=== PATIENT | male | born 1970 | race Caucasian/White ===

== ENCOUNTER 2025-03-23 17:52 | Inpatient (IN) | payer SELFPAY ==
[~2025-03-23] VITALS: Ht 162.6 cm; Wt 110.3 kg
[2025-03-23] MEDS: SODIUM CHLORIDE 0.9% 1,000 ML IV ONE (18:20)
[2025-03-23 20:27] LABS: BASOPHILS % 0.4 % (0.0-2.0); EOSINOPHILS % 0.3 % (0.0-5.0); HEMATOCRIT. 44.7 % (42.0-52.0); HEMOGLOBIN. 14.7 g/dL (14.0-18.0); LYMPHOCYTES % 35.6 % (20.0-50.0); MEAN PLATELET VOLUME 8.2 fl (7.4-10.4); MONOCYTES % 7.4 % (2.0-8.0); NEUTROPHILS % 56.3 % (40.0-76.0); PLATELET 239 x1000/uL (130-400); RED BLOOD CELL COUNT 5.04 mill/uL (4.7-6.1); RED CELL DISTRIBUTION WIDTH 12.4 % (11.6-14.6)
[2025-03-23 20:39] LABS: CREATININE 0.9 mg/dL (0.6-1.3); TROPONIN I HIGH SENSITIVITY < 4 ng/L (3.0-53)
[2025-03-23 20:40] LABS: UREA NITROGEN BLOOD 8 mg/dL (9-23)
[2025-03-23 20:41] LABS: ASPARTATE AMINOTRANSFERASE 30 IU/L (<34)
[2025-03-23 20:42] LABS: BILIRUBIN DIRECT < 0.1 mg/dL (<=3.0); BILIRUBIN TOTAL 0.2 mg/dL (0.1-1.0); PROTEIN TOTAL 6.5 g/dL (6.0-8.3)
[2025-03-23 21:00] VITALS: O2SAT 97
[2025-03-23] MEDS: MIDAZOLAM HCL 2 MG/2 ML VIAL IV ONE (21:00)
[2025-03-23] MEDS: FOLIC ACID 1 MG, THIAMINE HCL 100 MG, MVI, ADULT NO.1 10 ML in DEXTROSE 5% WATER 1,000 ML IV ONE (22:05)
[2025-03-23] MEDS ORDERED: LORAZEPAM 2MG/ML UD SYRINGE IV PRN (23:00)
[2025-03-23] MEDS ORDERED: CHLORDIAZEPOXIDE 25MG CAPSULE PO PRN (23:00)
[2025-03-23] MEDS ORDERED: PHENOBARBITAL 60MG TABLET PO PRN (23:00)
[2025-03-23] MEDS ORDERED: DEXTROSE 50% WATER 50ML SYRINGE IV PRN (23:00)
[2025-03-23] MEDS: DEXT 5%/0.9% NACL 1,000 ML IV SCH (23:00)
[2025-03-23] MEDS ORDERED: ONDANSETRON HCL 4MG/2ML INJ IV PRN (23:00)
[2025-03-24 00:02] VITALS: BP 143/78; PULSE 88; RESP 20; TEMP 36.7; O2SAT 99
[2025-03-24] MEDS: MULTIVITAMINS,THER W-MINERALS TABLET PO SCH (00:09)
[2025-03-24] MEDS: FOLIC ACID 1MG TABLET PO SCH (00:09)
[2025-03-24] MEDS: PANTOPRAZOLE SODIUM 40 MG/VIAL IV SCH (00:15)
[2025-03-24] MEDS: THIAMINE HCL 100 MG/1 ML 2ML VIAL IM SCH (00:27)
[2025-03-24 00:45] VITALS: BP 138/86; PULSE 93; RESP 18; TEMP 36.5848
[2025-03-24 01:16] LABS: BG BASE EXCESS -2.5 mmol/L (-2.0-3.0); BG CARBOXYHEMOGLOBIN 1.2 % (0.5-1.5); BG DEOXYHEMOGLOBIN 4.2 % (0.0-5.0); BG FRACTION INSPIRED OXYGEN 21; BG HCO3 ACT 21.0 mmol/L (21.0-28.0); BG METHEMOGLOBIN 0.2 % (0.5-1.5); BG OXYGEN SATURATION 95.7 % (94.0-98.0); BG OXYHEMOGLOBIN 94.4 % (94.0-98.0); BG PCO2 33.0 mmHg (35.0-48.0); BG PH 7.421 (7.350-7.450); BG PO2 79.5 mmHg (83.0-108.0); BG SAMPLE SITE RIGHT BRACHIAL; BG TOTAL HEMOGLOBIN 15.4 g/dL (13.5-17.5); BG VENT MODE ROOM AIR
[2025-03-24] MEDS ORDERED: BLOOD SUGAR DIAGNOSTIC STRIP TEST SCH (07:40)
[2025-03-24] MEDS ORDERED: INSULIN LISPRO 100 UNITS/ML SUBCUT SCH (08:10)
[2025-03-24] MEDS ORDERED: ENOXAPARIN 40MG/0.4ML SYR SUBCUT SCH (09:00)
[2025-03-26] MEDS ORDERED: THIAMINE HCL 100MG TABLET PO SCH (09:00)
== END 2025-03-24 01:55 | disposition left against medical advice (07) | DRG 770 ==
LOC: ER 17:52 → EDBEDREQ 20:54 → EDBEDREQTM 20:54 → ENRESERV 21:21 → EDBD 22:20 → 7WST 22:20
PROVIDERS: ADMIT Hospitalist; ATTEND Hospitalist
DX: F10.229 Alcohol dependence with intoxication, unspecified (principal); G93.40 Encephalopathy, unspecified; E87.0 Hyperosmolality and hypernatremia; E87.20 Acidosis, unspecified; E11.9 Type 2 diabetes mellitus without complications; Y90.8 Blood alcohol level of 240 mg/100 ml or more; I10 Essential (primary) hypertension; Z53.29 Procedure and treatment not carried out because of patient's decision for other reasons
CPT/HCPCS: 36415; 36600; 71045; 80048; 80076; 80307; 80320; 80329; 82010; 82375; 82805; 83605; 83735; 83880; 84484; 85025; 93005; 99285; J2250; J3411; J3490; J7030; J7070; G0480